=== PATIENT | female | born 1970 ===

== ENCOUNTER 2017-07-30 07:31 | Observation (INO) | payer BC ==
[2017-07-29 14:54] LABS: CHLORIDE,CL 107 mmol/L (98-110); SODIUM,NA 139 mmol/L (136-146)
[~2017-07-30 07:31] MED LIST: Lactated Ringers 1,000 ML IV SCH; Sodium Chloride 0.9% 10 ML Syringe FLUSH PRN; Sodium Chloride 0.9% 2.5 ML Syringe FLUSH PRN; ceFAZolin 2 GM in Premix Bag 1 BAG IV ONE
[2017-07-30] MEDS ORDERED: Fluorescein 5 ML Vial ONE (08:12)
[2017-07-30] MEDS ORDERED: Octyl 2-Cyanoacrylate 1 Tube ONE (08:12)
[2017-07-30] MEDS ORDERED: Rocuronium 10 MG/ML 10 ML Syringe ONE (08:14)
[2017-07-30] MEDS ORDERED: Ondansetron 4 MG/2 ML SDV ONE (08:14)
[2017-07-30] MEDS ORDERED: Lidocaine 2% 5 ML SDV ONE (08:14)
[2017-07-30] MEDS ORDERED: Propofol 200 MG/20 ML SDV ONE (08:15)
[2017-07-30] MEDS ORDERED: Midazolam 1 MG/ML 2 ML SDV ONE ×2 (08:15→09:45)
[2017-07-30] MEDS ORDERED: HYDROmorphone 2 MG/ML Syringe ONE ×2 (08:15→10:25)
[2017-07-30] MEDS ORDERED: fentaNYL 100 MCG/2 ML SDV ONE (08:15)
--- NOTE | 2017-07-30 08:38 | PCM.PREANE ---
Preanesthetic Assessment - Anesthesia/Transfusion/Family Hx Anesthesia History: Prior Anesthesia Without Reaction Family History of Anesthesia Reaction: No Transfusion History: No Prior Transfusion(s) Intubation History: Unknown - Review of Systems General: No Symptoms Pulmonary: No Symptoms Cardiovascular: No Symptoms Gastrointestinal: No Symptoms Neurological: No Symptoms Other: Reports: None - Physical Assessment O2 Sat by Pulse Oximetry: 98 Respiratory Rate: 16 Vital Signs: Last Vital Signs Temp 36.3 C 07/30/17 08:08 Pulse 86 07/30/17 08:08 Resp 16 07/30/17 08:08 BP 108/67 07/30/17 08:08 Pulse Ox 98 07/30/17 08:08 Height: 1.65 m Weight: 114.759 kg ASA Class: 2 Mental Status: Alert & Oriented x3 Airway Class: Mallampati = 2 Dentition: Reports: Normal Dentition Thyro-Mental Finger Breadths: 3 Mouth Opening Finger Breadths: 3 ROM/Head Extension: Full Lungs: Clear to Auscultation, Normal Respiratory Effort Cardiovascular: Regular Rate, Regular Rhythm - Lab Values: Laboratory Last Values WBC 7.25 K/uL (4.0-11.0) 07/29/17 14:22 RBC 3.82 M/uL (4.30-5.90) L 07/29/17 14:22 Hgb 9.9 g/dL (12.0-16.0) L 07/29/17 14:22 Hct 31.9 % (36.0-46.0) L 07/29/17 14:22 MCV 83.5 fL (80.0-98.0) 07/29/17 14:22 MCH 25.9 pg (27.0-32.0) L 07/29/17 14:22 MCHC 31.0 g/dL (31.0-37.0) 07/29/17 14:22 RDW Std Deviation 49.2 fl (28.0-62.0) 07/29/17 14:22 RDW Coeff of Shahrzad 16 % (11.0-15.0) H 07/29/17 14:22 Plt Count 369 K/uL (150-400) 07/29/17 14:22 MPV 10.20 fL (7.40-12.00) 07/29/17 14:22 Nucleated RBC % 0.0 /100WBC 07/29/17 14:22 Nucleated RBCs # 0 K/uL 07/29/17 14:22 Sodium 139 mmol/L (136-146) 07/29/17 14:22 Potassium 4.1 mmol/L (3.5-5.1) 07/29/17 14:22 Chloride 107 mmol/L (98-110) 07/29/17 14:22 Carbon Dioxide 24 mmol/L (21-31) 07/29/17 14:22 BUN 13 mg/dL (6.0-23.0) 07/29/17 14:22 Creatinine 0.8 mg/dL (0.6-1.5) 07/29/17 14:22 Est Cr Clr Drug Dosing 79.07 mL/min 07/29/17 14:22 Estimated GFR (MDRD) > 60.0 ml/min 07/29/17 14:22 Glucose 87 mg/dL (60-110) 07/29/17 14:22 Calcium 9.1 mg/dL (8.8-10.8) 07/29/17 14:22 HCG, Qual NEGATIVE (NEG) 07/29/17 14:22 Blood Type O POSITIVE 07/29/17 14:22 Antibody Screen NEGATIVE 07/29/17 14:22 - Allergies Allergies/Adverse Reactions: Allergies Allergy/AdvReac Type Severity Reaction Status Date / Time morphine Allergy mood change Verified 07/27/17 10:28 - Blood Blood Available: No - Anesthesia Plan Pre-Op Medication Ordered: None - Acknowledgements Anesthesia Type Planned: General Anesthesia Pt an Appropriate Candidate for the Planned Anesthesia: Yes Alternatives and Risks of Anesthesia Discussed w Pt/Guardian: Yes Pt/Guardian Understands and Agrees with Anesthesia Plan: Yes PreAnesthesia Questionnaire HEENT History: Reports: Other (See Below) Other HEENT History: wears glasses Cardiovascular History: Reports: Arrhythmia Other Cardiovascular History: 8 or 9 months ago went to ER for rapid heartrate Gastrointestinal History: Reports: Other (See Below) Other Gastrointestinal History: occasional heartburn 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 History: Reports: None 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: Musculoskeletal History: Reports: Back Pain, Chronic, Fracture Other Musculoskeletal History: treatment for left ankle fx Psychiatric History: Reports: Anxiety, Bipolar, Depression Endocrine/Metabolic History: Reports: Obesity/BMI 30+ - Past Surgical History Head Surgeries/Procedures: Reports: None GI Surgical History: Reports: Appendectomy, Cholecystectomy Female Surgical History: Reports: D&C, Tubal Ligation Musculoskeletal Surgical History: Reports: Arthroscopic Knee (left), Other (See Below) (left ankle surgery) - SUBSTANCE USE Smoking Status *Q: Current Every Day Smoker (< 1 ppd) Tobacco Use Within Last Twelve Months: Cigarettes Recreational Drug Use History: Yes Recreational Drug Type: Reports: Marijuana/Hashish - HOME MEDS Home Medications: Home Meds Citalopram [Celexa] 40 mg PO DAILY 05/08/16 [History] lamoTRIgine [Lamictal] 100 mg PO BEDTIME 05/08/16 [History] Ibuprofen 4 tab PO ASDIRECTED PRN 07/27/17 [History] - CURRENT (IN HOUSE) MEDS Current Meds: Current Medications Lactated Ringer's (Ringers, Lactated) 1,000 mls @ 125 mls/hr IV ASDIRECTED DELBERT Last Admin: 07/30/17 08:09 Dose: 125 mls/hr Sodium Chloride (Saline Flush) 10 ml FLUSH ASDIRECTED PRN PRN Reason: Keep Vein Open Sodium Chloride (Saline Flush) 2.5 ml FLUSH ASDIRECTED PRN PRN Reason: Keep Vein Open Discontinued Medications Fentanyl (Sublimaze) Confirm Administered Dose 100 mcg .ROUTE .STK-MED ONE Stop: 07/30/17 08:16 Fluorescein Sodium (Ak-Fluor) Confirm Administered Dose 5 ml .ROUTE .STK-MED ONE Stop: 07/30/17 08:13 Hydromorphone HCl (Dilaudid) Confirm Administered Dose 2 mg .ROUTE .STK-MED ONE Stop: 07/30/17 08:16 Cefazolin Sodium/Dextrose 2 gm (/ Premix) 50 mls @ 100 mls/hr IV ONETIME ONE Stop: 07/29/17 10:00 Lidocaine (Xylocaine-Mpf 2%) Confirm Administered Dose 5 ml .ROUTE .STK-MED ONE Stop: 07/30/17 08:15 Midazolam HCl (Versed 1 Mg/Ml) Confirm Administered Dose 2 mg .ROUTE .STK-MED ONE Stop: 07/30/17 08:16 Octyl Cyanoacrylate (Dermabond Advance) Confirm Administered Dose 1 applic .ROUTE .STK-MED ONE Stop: 07/30/17 08:13 Ondansetron HCl (Zofran) Confirm Administered Dose 4 mg .ROUTE .STK-MED ONE Stop: 07/30/17 08:15 Propofol (Diprivan 20 Ml) Confirm Administered Dose 200 mg .ROUTE .STK-MED ONE Stop: 07/30/17 08:16 Rocuronium [place] (Zemuron) Confirm Administered Dose 100 mg .ROUTE .STK-MED ONE Stop: 07/30/17 08:15
[2017-07-30] MEDS ORDERED: diphenhydrAMINE 50 MG/ML SDV ONE (09:31)
[2017-07-30] MEDS ORDERED: Dexamethasone 4 MG/ML 5 ML MDV ONE (09:31)
[2017-07-30] MEDS ORDERED: HYDROmorphone 2 MG/ML Syringe IVPUSH PRN ×2 (09:49→17:46)
[2017-07-30] MEDS ORDERED: Ketorolac 30 MG/ML SDV ONE (10:03)
[2017-07-30] MEDS ORDERED: Neostigmine Methylsulfate 1 MG/ML 5 ML Syringe ONE (10:34)
[2017-07-30] MEDS ORDERED: Promethazine 25 MG/ML SDV IM PRN (10:42)
[2017-07-30] MEDS ORDERED: Ketorolac 30 MG/ML SDV IVPUSH PRN (10:42)
[2017-07-30] MEDS ORDERED: Ondansetron 4 MG/2 ML SDV IVPUSH PRN (10:42)
[2017-07-30] MEDS ORDERED: Acetaminophen/oxyCODONE 325-5 MG Tab PO PRN (10:42)
[2017-07-30] MEDS ORDERED: Ketorolac 30 MG/ML SDV IVPUSH ONE (10:42)
--- NOTE | 2017-07-30 10:47 | PCM.OPNOTE ---
- General Post-Op/Procedure Note Date of Surgery/Procedure: 07/30/17 Operative Procedure(s): TVH,TVT and cysto Pre Op Diagnosis: menometrorragia, ARABELLA Post-Op Diagnosis: Same Anesthesia Technique: General ET Tube Primary Surgeon: Germain Pacheco EBL in mLs: 75 Complications: None Condition: Good
[2017-07-30] MEDS: fentaNYL 100 MCG/2 ML SDV IVPUSH PRN ×2 (11:07→11:18)
[2017-07-30] MEDS ORDERED: Promethazine 12.5 MG Supp RECTAL PRN (11:45)
--- NOTE | 2017-07-30 12:14 | PCM.POSTAN ---
POST ANESTHESIA ASSESSMENT - MENTAL STATUS Mental Status: Alert, Oriented - RESPIRATORY Respiratory Status: Respiratory Rate WNL, Airway Patent, O2 Saturation Stable - CARDIOVASCULAR CV Status: Pulse Rate WNL, Blood Pressure Stable - GASTROINTESTINAL GI Status: No Symptoms - POST OP HYDRATION Hydration Status: Adequate & Stable
--- NOTE | 2017-07-30 12:42 | OR ---
SURGEON: Germain Pacheco MD DATE OF PROCEDURE: PREOPERATIVE DIAGNOSIS: Menometrorrhagia, stress urinary incontinence. POSTOPERATIVE DIAGNOSIS: Menometrorrhagia, stress urinary incontinence. OPERATION PERFORMED: Total vaginal hysterectomy, tension-free Solyx TVT cystoscopy. PRESSROOM WORKER: Dr. Norma Eisenberg. ANESTHESIA: General endotracheal intubation, Marianne Caatlan and Dr. Muñiz. ESTIMATED BLOOD LOSS: Less than 100 mL. COMPLICATION: None. FINDINGS: Uterus about 8 weeks' size. Both ovaries essentially is normal. INDICATION: Refer to the admit note. PROCEDURE IN DETAIL: The patient was brought to the OR, properly identified, and after adequate level of general anesthesia, the patient was placed in lithotomy position. Prepped and draped in sterile fashion as usual. A short weighted speculum was placed in vagina. A single-tooth tenaculum was applied to the cervix and the cervix pulled forward and using electrocautery, circular incision in the vaginal mucosa around the cervix was done. The posterior cul-de-sac was entered posteriorly with the Lopez scissors and the perineum and the vagina tacked posteriorly with 2- 0 Vicryl and the short-weighted speculum replaced with an extending long weighted speculum from both sides. There was uterosacral ligament identified from both sides, clamped with a curved Zeppelin, transected, and suture ligated with 2-0 Vicryl pop-off in a Quang fashion, held for further identification. The same thing was done with the cardinal ligament. Then, the cervicovesical space entered anteriorly and the bladder retracted completely away from the operative field and the anterior cul-de-sac was entered anteriorly. The broad ligament clamped with a curved Zeppelin, transected, and suture ligated with 2-0 Vicryl pop-off. The uterine vessel was suture ligated. The round ligament was clamped with a curved Zeppelin, transected, and suture ligated with 2-0 Vicryl pop-off. The uterus was delivered posteriorly and the superior pedicle was clamped with 90 degree Zeppelin and the uterus was removed. The ovary was preserved, but both tubes were removed thus achieving bilateral salpingectomy. The superior pedicle tied 1st with a free tie twice on both sides. Inspection of the operative field showed no oozing, no bleeding and then the uterosacral ligament and cardinal ligament anchored to the vagina at 3 and 9 o'clock for added vaginal support and then the vaginal cuff was closed with 2-0 Vicryl interrupted [id number] sutures. Once we did that, then attention was paid to the anterior vaginal wall and the anterior vaginal wall beneath the urethra was infiltrated with copious amount with normal saline and incised in the middle using electrocautery and the vaginal mucosa dissected laterally creating a tunnel for the Solyx TVT. The Solyx TVT was placed in place and anchored to the back of the pubis rami from both sides and then the vaginal cuff was closed with 3-0 Vicryl continuous interlocking for hemostasis. While we were closing the vaginal cuff, we asked anesthesia to give the patient fluorescein and cystoscopy was performed. The bladder was intact. Both ureteric orifices were seen with the dye coming from both of them. Thus, the patency of both ureters were verified. Satisfied with these findings, the procedure ended. The instrument and sponge count were correct. The patient tolerated the procedure well and went to recovery room in general condition. ANI / SVETLANA /[id number]
[2017-07-30] MEDS ORDERED: Adenosine 6 MG/2 ML SDV IVPUSH ONE ×2 (12:47→13:15)
[2017-07-30] MEDS ORDERED: Morphine 2 MG/ML Syringe IVPUSH ONE (12:48)
[2017-07-30] MEDS ORDERED: Metoprolol Succinate 50 MG Tab.ER PO ONE (13:17)
[2017-07-30] MEDS ORDERED: Metoprolol Succinate 50 MG Tab.ER PO SCH (13:45)
[2017-07-30] MEDS: Metoprolol Succinate 50 MG Tab.ER PO SCH (14:18)
[2017-07-30] MEDS: Acetaminophen/oxyCODONE 325-5 MG Tab PO PRN ×3 (14:23→22:09)
--- NOTE | 2017-07-30 16:38 | PCM.CONS ---
H&P History of Present Illness - General Admit Problem/Dx: Admission Diagnosis/Problem Admission Diagnosis/Problem Menometrorrhagia - History of Present Illness Initial Comments - Free Text/Narative: 46 yo female who had an elective total vaginal hysterectomy today. When she arrived on the floor she developed palpations. She was noted to have SVT with heart rate in the 180s. She was placed on telemetry and given 6mg adenosine x1 with no response followed by 12mg of adenosine with conversion to normal sinus rhythm. Dr. Varela was consulted and recommended starting metoprolol 50mg. She no longer is complaining of palpitations. She denies any chest pain or shortness of breath. She had one other episode of SVT in November where she was given adenosine and converted to normal sinus rhythm. Lower Abdominal Pain Score (Numeric/FACES): 5 - Related Data Allergies/Adverse Reactions: Allergies Allergy/AdvReac Type Severity Reaction Status Date / Time morphine Allergy mood change Verified 07/27/17 10:28 Home Medications: Home Meds Citalopram [Celexa] 40 mg PO DAILY 05/08/16 [History] lamoTRIgine [Lamictal] 100 mg PO BEDTIME 05/08/16 [History] Ibuprofen 4 tab PO ASDIRECTED PRN 07/27/17 [History] Past Medical History HEENT History: Reports: Other (See Below) Other HEENT History: wears glasses Cardiovascular History: Reports: Arrhythmia Other Cardiovascular History: 8 or 9 months ago went to ER for rapid heartrate Gastrointestinal History: Reports: Other (See Below) Other Gastrointestinal History: occasional heartburn 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 History: Reports: 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: Musculoskeletal History: Reports: Back Pain, Chronic, Fracture Other Musculoskeletal History: treatment for left ankle fx Psychiatric History: Reports: Anxiety, Bipolar, Depression Endocrine/Metabolic History: Reports: Obesity/BMI 30+ - Past Surgical History Head Surgeries/Procedures: Reports: None GI Surgical History: Reports: Appendectomy, Cholecystectomy Female Surgical History: Reports: D&C, Tubal Ligation Musculoskeletal Surgical History: Reports: Arthroscopic Knee (left), Other (See Below) (left ankle surgery) Social & Family History - Family History Family Medical History: Noncontributory - Tobacco Use Smoking Status *Q: Current Every Day Smoker (< 1 ppd) Years of Tobacco use: 9 Packs/Tins Daily: 1 - Recreational Drug Use Recreational Drug Use: Yes Drug Use in Last 12 Months: Yes Recreational Drug Type: Reports: Marijuana/Hashish Other Recreational Drug Type: 07/26/17 Recreational Drug Use Frequency: Daily H&P Review of Systems - Review of Systems: Review Of Systems: ROS reveals no pertinent complaints other than HPI. Exam - Exam Exam: See Below - Vital Signs Vital Signs: Last Vital Signs Temp 36.6 C 07/30/17 12:04 Pulse 66 07/30/17 15:42 Resp 14 07/30/17 15:42 BP 112/59 L 07/30/17 15:42 Pulse Ox 96 07/30/17 15:42 Weight: 114.759 kg - Exam General: Alert, Oriented, 4 HEENT: Mucosa Moist & Oasis, Posterior Pharynx Clear Neck: Supple Lungs: Clear to Auscultation, Normal Respiratory Effort Cardiovascular: Regular Rate, Regular Rhythm GI/Abdominal Exam: Normal Bowel Sounds, Soft, Non-Tender, No Distention Extremities: Normal Inspection, Normal Range of Motion, No Pedal Edema Skin: Warm, Dry, Intact - Patient Data Lab Results Last 24 hrs: Laboratory Results - last 24 hr 07/29/17 Range/Units 14:22 Blood Type O POSITIVE Antibody Screen NEGATIVE Result Diagrams: 07/31/17 06:24 07/31/17 06:24 Consult PN Assessment/Plan Procedures: Procedures ASSAY OF CK (CPK) (05/08/16) ASSAY OF TROPONIN QUANT (05/08/16) ASSAY THYROID STIM HORMONE (06/30/17) CHEST X-RAY 1 VIEW FRONTAL (05/08/16) CHORIONIC GONADOTROPIN ASSAY (06/30/17) COMPLETE CBC W/AUTO DIFF WBC (06/30/17) COMPREHEN METABOLIC PANEL (05/08/16) CREATINE MB FRACTION (05/08/16) ELECTROCARDIOGRAM TRACING (05/08/16) EMERGENCY DEPT VISIT (05/08/16) HYDRATE IV INFUSION ADD-ON (05/08/16) INFLUENZA ASSAY W/OPTIC (01/12/15) LIPID PANEL (09/01/14) METABOLIC PANEL TOTAL CA (06/01/17) ROUTINE VENIPUNCTURE (06/30/17) THER/PROPH/DIAG INJ IV PUSH (05/08/16) TRANSVAGINAL US NON-OB (07/07/17) URINALYSIS AUTO W/SCOPE (06/01/17) URINE TEST (07/09/17) X-RAY EXAM OF ABDOMEN (06/01/17) Problem List Initiated/Reviewed/Updated: Yes My Orders Last 24 Hours: My Active Orders 07/30/17 13:15 Admission Status [Patient Status] [ADT] Routine Plan: 46 yo female who developed SVT following a TVH. She has converted to normal sinus with adenosine. We will continue metoprolol and monitor overnight on telemetry.
--- NOTE | 2017-07-30 18:10 | PCM48HPAN ---
Post Anesthesia Note - EVALUATION WITHIN 48HRS OF ANESTHETIC Vital Signs in Normal Range: Yes Patient Participated in Evaluation: Yes Respiratory Function Stable: Yes Airway Patent: Yes Cardiovascular Function Stable: Yes Hydration Status Stable: Yes Pain Control Satisfactory: Yes Nausea and Vomiting Control Satisfactory: Yes Mental Status Recovered: Yes - COMMENTS/OBSERVATIONS Free Text/Narrative:: Pt had one episode of SVT with successful conversion to SR with two doses of Adenosine. VSS since.
[2017-07-31] MEDS ORDERED: Sodium Chloride 0.9% 500 ML IV ONE (06:00)
[2017-07-31 07:14] LABS: CHLORIDE,CL 108 mmol/L (98-110); SODIUM,NA 140 mmol/L (136-146)
[2017-07-31] MEDS ORDERED: Acetaminophen 325 MG Tab PO PRN (08:04)
--- NOTE | 2017-07-31 09:00 | PCM.CONSN ---
- General Info Date of Service: 07/31/17 Admission Dx/Problem (Free Text): Admission Diagnosis/Problem Admission Diagnosis/Problem Menometrorrhagia Subjective Update: Patient doing well. No recurrence of chest pain. Denies sob, palpitations, weakness, numbness, tingling, vision changes. Overnight telemetry was Sinus Rhythm with intermittent bradycardia during sleep. - Review of Systems General: Reports: No Symptoms HEENT: Reports: No Symptoms Pulmonary: Reports: No Symptoms Cardiovascular: Reports: No Symptoms Gastrointestinal: Reports: No Symptoms 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: Reports: No Symptoms Musculoskeletal: Reports: No Symptoms Skin: Reports: No Symptoms Neurological: Reports: No Symptoms Psychiatric: Reports: No Symptoms - Patient Data Vitals - Most Recent: Last Vital Signs Temp 36.4 C 07/31/17 04:00 Pulse 59 L 07/30/17 18:00 Resp 16 07/31/17 07:00 BP 97/48 L 07/31/17 07:00 Pulse Ox 94 L 07/31/17 07:00 Weight - Most Recent: 117.7 kg I&O - Last 24 Hours: Intake & Output 07/30/17 07/31/17 07/31/17 22:59 06:59 14:59 Intake Total 1180 1100 500 Output Total 150 1300 Balance 1030 -200 500 Lab Results Last 24 Hours: Laboratory Results - last 24 hr 07/31/17 07/31/17 Range/Units 06:24 06:24 WBC 13.47 H (4.0-11.0) K/uL RBC 3.22 L (4.30-5.90) M/uL Hgb 8.4 L (12.0-16.0) g/dL Hct 27.1 L (36.0-46.0) % MCV 84.2 (80.0-98.0) fL MCH 26.1 L (27.0-32.0) pg MCHC 31.0 (31.0-37.0) g/dL RDW Std Deviation 49.9 (28.0-62.0) fl RDW Coeff of Shahrzad 16 H (11.0-15.0) % Plt Count 315 (150-400) K/uL MPV 10.30 (7.40-12.00) fL Neut % (Auto) 83.4 H (48.0-80.0) % Lymph % (Auto) 11.1 L (16.0-40.0) % Davie % (Auto) 5.0 (0.0-15.0) % Eos % (Auto) 0.4 (0.0-7.0) % Baso % (Auto) 0.1 (0.0-1.5) % Neut # (Auto) 11.2 H (1.4-5.7) K/uL Lymph # (Auto) 1.5 (0.6-2.4) K/uL Davie # (Auto) 0.7 (0.0-0.8) K/uL Eos # (Auto) 0.1 (0.0-0.7) K/uL Baso # (Auto) 0.0 (0.0-0.1) K/uL Nucleated RBC % 0.0 /100WBC Nucleated RBCs # 0 K/uL Sodium 140 (136-146) mmol/L Potassium 4.0 (3.5-5.1) mmol/L Chloride 108 (98-110) mmol/L Carbon Dioxide 25 (21-31) mmol/L BUN 10 (6.0-23.0) mg/dL Creatinine 0.7 (0.6-1.5) mg/dL Est Cr Clr Drug Dosing 90.22 mL/min Estimated GFR (MDRD) > 60.0 ml/min Glucose 115 H (60-110) mg/dL Calcium 8.4 L (8.8-10.8) mg/dL Med Orders - Current: Current Medications Acetaminophen (Tylenol) 650 mg PO Q6H PRN PRN Reason: Pain/Fever Last Admin: 07/31/17 08:31 Dose: 650 mg Hydromorphone HCl (Dilaudid) 0.5 mg IVPUSH Q2H PRN PRN Reason: Pain Last Admin: 07/30/17 18:28 Dose: 0.5 mg Ketorolac Tromethamine (Toradol) 30 mg IVPUSH Q6H PRN PRN Reason: Pain (severe 7-10) Stop: 08/04/17 10:42 Last Admin: 07/31/17 04:57 Dose: 30 mg Metoprolol Succinate (Toprol Xl) 50 mg PO DAILY DELBERT Last Admin: 07/30/17 14:18 Dose: 50 mg Ondansetron HCl (Zofran) 4 mg IVPUSH Q6H PRN PRN Reason: Nausea/Vomiting Oxycodone/Acetaminophen (Percocet 325-5 Mg) 1 tab PO Q4H PRN PRN Reason: Pain (moderate 4-6) Last Admin: 07/31/17 02:20 Dose: 1 tab Oxycodone/Acetaminophen (Percocet 325-5 Mg) 2 tab PO Q4H PRN PRN Reason: Pain (moderate 4-6) Last Admin: 07/30/17 22:09 Dose: 2 tab Promethazine HCl (Phenergan) 25 mg IM Q6H PRN PRN Reason: Nausea/Vomiting Promethazine HCl (Phenadoz) 12.5 mg RECTAL .PRN PRN PRN Reason: Nausea Last Admin: 07/30/17 11:52 Dose: 12.5 mg Sodium Chloride (Saline Flush) 10 ml FLUSH ASDIRECTED PRN PRN Reason: Keep Vein Open Sodium Chloride (Saline Flush) 2.5 ml FLUSH ASDIRECTED PRN PRN Reason: Keep Vein Open Discontinued Medications Adenosine (Adenocard) 6 mg IVPUSH NOW ONE Stop: 07/30/17 12:48 Last Admin: 07/30/17 12:56 Dose: 6 mg Adenosine (Adenocard) 12 mg IVPUSH NOW ONE Stop: 07/30/17 13:16 Last Admin: 07/30/17 13:06 Dose: 12 mg Dexamethasone (Dexamethasone) Confirm Administered Dose 20 mg .ROUTE .STK-MED ONE Stop: 07/30/17 09:32 Diphenhydramine HCl (Benadryl) Confirm Administered Dose 50 mg .ROUTE .STK-MED ONE Stop: 07/30/17 09:32 Fentanyl (Sublimaze) Confirm Administered Dose 100 mcg .ROUTE .STK-MED ONE Stop: 07/30/17 08:16 Fentanyl (Sublimaze) 50 mcg IVPUSH .Q5MIN PRN PRN Reason: Pain Last Admin: 07/30/17 11:18 Dose: 50 mcg Fluorescein Sodium (Ak-Fluor) Confirm Administered Dose 5 ml .ROUTE .STK-MED ONE Stop: 07/30/17 08:13 Glycopyrrolate () Confirm Administered Dose 1 mg .ROUTE .STK-MED ONE Stop: 07/30/17 10:35 Hydromorphone HCl (Dilaudid) Confirm Administered Dose 2 mg .ROUTE .STK-MED ONE Stop: 07/30/17 08:16 Hydromorphone HCl (Dilaudid) 0.5 mg IVPUSH .Q10MIN PRN PRN Reason: Pain Last Admin: 07/30/17 11:29 Dose: 0.5 mg Hydromorphone HCl (Dilaudid) Confirm Administered Dose 2 mg .ROUTE .STK-MED ONE Stop: 07/30/17 10:26 Cefazolin Sodium/Dextrose 2 gm (/ Premix) 50 mls @ 100 mls/hr IV ONETIME ONE Stop: 07/29/17 10:00 Last Admin: 07/30/17 20:17 Dose: Not Given Lactated Ringer's (Ringers, Lactated) 1,000 mls @ 125 mls/hr IV ASDIRECTED DELBERT Last Admin: 07/30/17 08:09 Dose: 125 mls/hr Sodium Chloride (Normal Saline) 500 mls @ 500 mls/hr IV .BOLUS ONE Stop: 07/31/17 06:59 Last Admin: 07/31/17 06:07 Dose: 500 mls/hr Ketorolac Tromethamine (Toradol) Confirm Administered Dose 30 mg .ROUTE .STK- MED ONE Stop: 07/30/17 10:04 Ketorolac Tromethamine (Toradol) 30 mg IVPUSH ONETIME ONE Stop: 07/30/17 10:43 Last Admin: 07/30/17 20:17 Dose: Not Given Lidocaine (Xylocaine-Mpf 2%) Confirm Administered Dose 5 ml .ROUTE .STK-MED ONE Stop: 07/30/17 08:15 Metoprolol Succinate (Toprol Xl) 50 mg PO ONETIME ONE Stop: 07/30/17 13:18 Last Admin: 07/30/17 20:51 Dose: Not Given Metoprolol Succinate (Toprol Xl) 50 mg PO DAILY [facility] Midazolam HCl (Versed 1 Mg/Ml) Confirm Administered Dose 2 mg .ROUTE .STK-MED ONE Stop: 07/30/17 08:16 Midazolam HCl (Versed 1 Mg/Ml) Confirm Administered Dose 2 mg .ROUTE .STK-MED ONE Stop: 07/30/17 09:46 Morphine Sulfate (Morphine) 2 mg IVPUSH ONETIME ONE Stop: 07/30/17 12:49 Last Admin: 07/30/17 12:54 Dose: 2 mg Neostigmine Methylsulfate (Neostigmine) Confirm Administered Dose 5 mg .ROUTE .STK-MED ONE Stop: 07/30/17 10:35 Octyl Cyanoacrylate (Dermabond Advance) Confirm Administered Dose 1 applic .ROUTE .STK-MED ONE Stop: 07/30/17 08:13 Ondansetron HCl (Zofran) Confirm Administered Dose 4 mg .ROUTE .STK-MED ONE Stop: 07/30/17 08:15 Propofol (Diprivan 20 Ml) Confirm Administered Dose 200 mg .ROUTE .STK-MED ONE Stop: 07/30/17 08:16 Rocuronium [place] (Zemuron) Confirm Administered Dose 100 mg .ROUTE .STK-MED ONE Stop: 07/30/17 08:15 - Exam General: Alert, Oriented, Cooperative, No Acute Distress HEENT: Pupils Equal, Pupils Reactive Neck: Supple, Trachea Midline, No JVD Lungs: Clear to Auscultation, Normal Respiratory Effort Cardiovascular: Regular Rate, Regular Rhythm, Bradycardia Extremities: Normal Inspection, No Pedal Edema, Normal Capillary Refill Peripheral Pulses: 2+: Carotid (L), Carotid (R), Radial (L), Radial (R), Dorsalis Pedis (L), Dorsalis Pedis (R) Neurological: No New Focal Deficit Consult PN Assessment/Plan Procedures: Procedures ASSAY OF CK (CPK) (05/08/16) ASSAY OF TROPONIN QUANT (05/08/16) ASSAY THYROID STIM HORMONE (06/30/17) CHEST X-RAY 1 VIEW FRONTAL (05/08/16) CHORIONIC GONADOTROPIN ASSAY (06/30/17) COMPLETE CBC W/AUTO DIFF WBC (06/30/17) COMPREHEN METABOLIC PANEL (05/08/16) CREATINE MB FRACTION (05/08/16) ELECTROCARDIOGRAM TRACING (05/08/16) EMERGENCY DEPT VISIT (05/08/16) HYDRATE IV INFUSION ADD-ON (05/08/16) INFLUENZA ASSAY W/OPTIC (01/12/15) LIPID PANEL (09/01/14) METABOLIC PANEL TOTAL CA (06/01/17) ROUTINE VENIPUNCTURE (06/30/17) THER/PROPH/DIAG INJ IV PUSH (05/08/16) TRANSVAGINAL US NON-OB (07/07/17) URINALYSIS AUTO W/SCOPE (06/01/17) URINE TEST (07/09/17) X-RAY EXAM OF ABDOMEN (06/01/17) Problem List Initiated/Reviewed/Updated: Yes My Orders Last 24 Hours: My Active Orders 07/30/17 13:18 Echo Comp wo Cont [US] Routine 07/31/17 08:04 Acetaminophen [Tylenol] 650 mg PO Q6H PRN Plan: Patient admitted for vaginal hysterectomy. She developed post-op SVT with palpitations for which medicine was consulted. She was given Adenosine 6 mg followed by 12 mg which resulted in successful of SVT. She was monitored overnight on telemetry and was Sinus Rhythm with intermittent bradycardia. She did develop hypotension overnight for which she was given 500 ml bolus of NS. Patient denies any recurrence of chest pain or palpitations. Prior to initially receiving the Adenosine, case was discussed Dr. Whyte who recommended starting Tropolol 50 mg PO Daily and monitoring. Due to hypotension and bradycardia it was not given. She will not be discharged home on the Metoprolol. She will have f/u visit arranged with Dr. Whyte. She was informed to return to ED or seek medical care if palpitations or chest pain recurs. She is cleared for discharge from medicine point of view.
[2017-07-31] MEDS: Metoprolol Succinate 50 MG Tab.ER PO SCH (09:06)
[2017-07-31 09:07] VITALS: BP 100/61
--- NOTE | 2017-07-31 09:07 | PCM.SURGPN ---
- General Info Date of Service: 07/31/17 POD#: 1 Functional Status: Reports: Pain Controlled - Review of Systems General: Reports: No Symptoms HEENT: Reports: No Symptoms Pulmonary: Reports: No Symptoms Cardiovascular: Reports: No Symptoms Gastrointestinal: Reports: No Symptoms 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: Reports: No Symptoms Musculoskeletal: Reports: No Symptoms Skin: Reports: No Symptoms Neurological: Reports: No Symptoms Psychiatric: Reports: No Symptoms - Patient Data Vitals - Most Recent: Last Vital Signs Temp 36.4 C 07/31/17 04:00 Pulse 59 L 07/30/17 18:00 Resp 16 07/31/17 07:00 BP 97/48 L 07/31/17 07:00 Pulse Ox 94 L 07/31/17 07:00 Weight - Most Recent: 117.7 kg I&O - Last 24 Hours: Intake & Output 07/30/17 07/31/17 07/31/17 22:59 06:59 14:59 Intake Total 1180 1100 500 Output Total 150 1300 Balance 1030 -200 500 Lab Results Last 24 Hrs: Laboratory Results - last 24 hr 07/31/17 07/31/17 Range/Units 06:24 06:24 WBC 13.47 H (4.0-11.0) K/uL RBC 3.22 L (4.30-5.90) M/uL Hgb 8.4 L (12.0-16.0) g/dL Hct 27.1 L (36.0-46.0) % MCV 84.2 (80.0-98.0) fL MCH 26.1 L (27.0-32.0) pg MCHC 31.0 (31.0-37.0) g/dL RDW Std Deviation 49.9 (28.0-62.0) fl RDW Coeff of Shahrzad 16 H (11.0-15.0) % Plt Count 315 (150-400) K/uL MPV 10.30 (7.40-12.00) fL Neut % (Auto) 83.4 H (48.0-80.0) % Lymph % (Auto) 11.1 L (16.0-40.0) % [place] % (Auto) 5.0 (0.0-15.0) % Eos % (Auto) 0.4 (0.0-7.0) % Baso % (Auto) 0.1 (0.0-1.5) % Neut # (Auto) 11.2 H (1.4-5.7) K/uL Lymph # (Auto) 1.5 (0.6-2.4) K/uL [place] # (Auto) 0.7 (0.0-0.8) K/uL Eos # (Auto) 0.1 (0.0-0.7) K/uL Baso # (Auto) 0.0 (0.0-0.1) K/uL Nucleated RBC % 0.0 /100WBC Nucleated RBCs # 0 K/uL Sodium 140 (136-146) mmol/L Potassium 4.0 (3.5-5.1) mmol/L Chloride 108 (98-110) mmol/L Carbon Dioxide 25 (21-31) mmol/L BUN 10 (6.0-23.0) mg/dL Creatinine 0.7 (0.6-1.5) mg/dL Est Cr Clr Drug Dosing 90.22 mL/min Estimated GFR (MDRD) > 60.0 ml/min Glucose 115 H (60-110) mg/dL Calcium 8.4 L (8.8-10.8) mg/dL Med Orders - Current: Current Medications Acetaminophen (Tylenol) 650 mg PO Q6H PRN PRN Reason: Pain/Fever Last Admin: 07/31/17 08:31 Dose: 650 mg Hydromorphone HCl (Dilaudid) 0.5 mg IVPUSH Q2H PRN PRN Reason: Pain Last Admin: 07/30/17 18:28 Dose: 0.5 mg Ketorolac Tromethamine (Toradol) 30 mg IVPUSH Q6H PRN PRN Reason: Pain (severe 7-10) Stop: 08/04/17 10:42 Last Admin: 07/31/17 04:57 Dose: 30 mg Metoprolol Succinate (Toprol Xl) 50 mg PO DAILY [facility]BERT Last Admin: 07/30/17 14:18 Dose: 50 mg Ondansetron HCl (Zofran) 4 mg IVPUSH Q6H PRN PRN Reason: Nausea/Vomiting Oxycodone/Acetaminophen (Percocet 325-5 Mg) 1 tab PO Q4H PRN PRN Reason: Pain (moderate 4-6) Last Admin: 07/31/17 02:20 Dose: 1 tab Oxycodone/Acetaminophen (Percocet 325-5 Mg) 2 tab PO Q4H PRN PRN Reason: Pain (moderate 4-6) Last Admin: 07/30/17 22:09 Dose: 2 tab Promethazine HCl (Phenergan) 25 mg IM Q6H PRN PRN Reason: Nausea/Vomiting Promethazine HCl (Phenadoz) 12.5 mg RECTAL .PRN PRN PRN Reason: Nausea Last Admin: 07/30/17 11:52 Dose: 12.5 mg Sodium Chloride (Saline Flush) 10 ml FLUSH ASDIRECTED PRN PRN Reason: Keep Vein Open Sodium Chloride (Saline Flush) 2.5 ml FLUSH ASDIRECTED PRN PRN Reason: Keep Vein Open Discontinued Medications Adenosine (Adenocard) 6 mg IVPUSH NOW ONE Stop: 07/30/17 12:48 Last Admin: 07/30/17 12:56 Dose: 6 mg Adenosine (Adenocard) 12 mg IVPUSH NOW ONE Stop: 07/30/17 13:16 Last Admin: 07/30/17 13:06 Dose: 12 mg Dexamethasone (Dexamethasone) Confirm Administered Dose 20 mg .ROUTE .STK-MED ONE Stop: 07/30/17 09:32 Diphenhydramine HCl (Benadryl) Confirm Administered Dose 50 mg .ROUTE .STK-MED ONE Stop: 07/30/17 09:32 Fentanyl (Sublimaze) Confirm Administered Dose 100 mcg .ROUTE .STK-MED ONE Stop: 07/30/17 08:16 Fentanyl (Sublimaze) 50 mcg IVPUSH .Q5MIN PRN PRN Reason: Pain Last Admin: 07/30/17 11:18 Dose: 50 mcg Fluorescein Sodium (Ak-Fluor) Confirm Administered Dose 5 ml .ROUTE .STK-MED ONE Stop: 07/30/17 08:13 Glycopyrrolate () Confirm Administered Dose 1 mg .ROUTE .STK-MED ONE Stop: 07/30/17 10:35 Hydromorphone HCl (Dilaudid) Confirm Administered Dose 2 mg .ROUTE .STK-MED ONE Stop: 07/30/17 08:16 Hydromorphone HCl (Dilaudid) 0.5 mg IVPUSH .Q10MIN PRN PRN Reason: Pain Last Admin: 07/30/17 11:29 Dose: 0.5 mg Hydromorphone HCl (Dilaudid) Confirm Administered Dose 2 mg .ROUTE .STK-MED ONE Stop: 07/30/17 10:26 Cefazolin Sodium/Dextrose 2 gm (/ Premix) 50 mls @ 100 mls/hr IV ONETIME ONE Stop: 07/29/17 10:00 Last Admin: 07/30/17 20:17 Dose: Not Given Lactated Ringer's (Ringers, Lactated) 1,000 mls @ 125 mls/hr IV ASDIRECTED DELBERT Last Admin: 07/30/17 08:09 Dose: 125 mls/hr Sodium Chloride (Normal Saline) 500 mls @ 500 mls/hr IV .BOLUS ONE Stop: 07/31/17 06:59 Last Admin: 07/31/17 06:07 Dose: 500 mls/hr Ketorolac Tromethamine (Toradol) Confirm Administered Dose 30 mg .ROUTE .STK- MED ONE Stop: 07/30/17 10:04 Ketorolac Tromethamine (Toradol) 30 mg IVPUSH ONETIME ONE Stop: 07/30/17 10:43 Last Admin: 07/30/17 20:17 Dose: Not Given Lidocaine (Xylocaine-Mpf 2%) Confirm Administered Dose 5 ml .ROUTE .STK-MED ONE Stop: 07/30/17 08:15 Metoprolol Succinate (Toprol Xl) 50 mg PO ONETIME ONE Stop: 07/30/17 13:18 Last Admin: 07/30/17 20:51 Dose: Not Given Metoprolol Succinate (Toprol Xl) 50 mg PO DAILY [facility] Midazolam HCl (Versed 1 Mg/Ml) Confirm Administered Dose 2 mg .ROUTE .STK-MED ONE Stop: 07/30/17 08:16 Midazolam HCl (Versed 1 Mg/Ml) Confirm Administered Dose 2 mg .ROUTE .STK-MED ONE Stop: 07/30/17 09:46 Morphine Sulfate (Morphine) 2 mg IVPUSH ONETIME ONE Stop: 07/30/17 12:49 Last Admin: 07/30/17 12:54 Dose: 2 mg Neostigmine Methylsulfate (Neostigmine) Confirm Administered Dose 5 mg .ROUTE .STK-MED ONE Stop: 07/30/17 10:35 Octyl Cyanoacrylate (Dermabond Advance) Confirm Administered Dose 1 applic .ROUTE .STK-MED ONE Stop: 07/30/17 08:13 Ondansetron HCl (Zofran) Confirm Administered Dose 4 mg .ROUTE .STK-MED ONE Stop: 07/30/17 08:15 Propofol (Diprivan 20 Ml) Confirm Administered Dose 200 mg .ROUTE .STK-MED ONE Stop: 07/30/17 08:16 Rocuronium [place] (Zemuron) Confirm Administered Dose 100 mg .ROUTE .STK-MED ONE Stop: 07/30/17 08:15 - Exam Wound/Incisions: Healing Well General: Alert, Oriented HEENT: Pupils Equal Neck: Supple Lungs: Clear to Auscultation, Normal Respiratory Effort Cardiovascular: Regular Rate, Regular Rhythm GI/Abdominal Exam: Normal Bowel Sounds, Soft, Non-Tender, No Organomegaly, No Distention, No Abnormal Bruit, No Mass, Pelvis Stable Extremities: Normal Inspection, Normal Range of Motion, Non-Tender, No Pedal Edema, Normal Capillary Refill Skin: Warm, Dry, Intact Neurological: No New Focal Deficit Psy/Mental Status: Alert, Normal Affect, Normal Mood - Problem List Review Problem List Initiated/Reviewed/Updated: Yes - My Orders Last 24 Hours: Active Orders 24 hr Category Date Time Status Admission Status [Patient Status] [ADT] Routine ADT 07/30/17 13:45 Active Patient Status [ADT] Routine ADT 07/30/17 10:42 Active Communication Order [RC] ROUTINE Care 07/30/17 20:07 Active EKG 12 Lead [EKG Documentation Completion] [RC] Care 07/31/17 06:01 Active ASDIRECTED Notify Provider Consults [RC] ASDIRECTED Care 07/30/17 12:34 Active Notify Provider Consults [RC] ASDIRECTED Care 07/30/17 17:45 Active Notify Provider Vital Signs [RC] ASDIRECTED Care 07/30/17 10:42 Active Oxygen Therapy [RC] ASDIRECTED Care 07/30/17 10:42 Active RT Incentive Spirometry [RC] Q2HWA Care 07/30/17 10:42 Active Up With Assistance [RC] PER UNIT ROUTINE Care 07/30/17 10:42 Active Up ad Oralia [RC] PER UNIT ROUTINE Care 07/30/17 10:42 Active Vital Signs [RC] Q1H Care 07/30/17 10:42 Active Consult to Physician [CONS] Stat Cons 07/30/17 12:33 Active Consult to Physician [CONS] Stat Cons 07/30/17 17:44 Active Regular Diet [DIET] Diet 07/30/17 Lunch Active Echo Comp wo Cont [US] Routine Exams 07/30/17 13:18 Taken Acetaminophen [Tylenol] Med 07/31/17 08:04 Active 650 mg PO Q6H PRN Acetaminophen/oxyCODONE [Percocet 325-5 MG] Med 07/30/17 10:42 Active 1 tab PO Q4H PRN Acetaminophen/oxyCODONE [Percocet 325-5 MG] Med 07/30/17 10:42 Active 2 tab PO Q4H PRN HYDROmorphone [Dilaudid] Med 07/30/17 17:46 Active 0.5 mg IVPUSH Q2H PRN Ketorolac [Toradol] Med 07/30/17 10:42 Active 30 mg IVPUSH Q6H PRN Metoprolol Succinate [Toprol XL] Med 07/30/17 13:45 Active 50 mg PO DAILY Ondansetron [Zofran] Med 07/30/17 10:42 Active 4 mg IVPUSH Q6H PRN Promethazine [Phenadoz] Med 07/30/17 11:45 Active 12.5 mg RECTAL .PRN PRN Promethazine [Phenergan] Med 07/30/17 10:42 Active 25 mg IM Q6H PRN Peripheral IV Discontinue [OM.PC] Routine Oth 07/30/17 10:42 Ordered Sequential Compression Device [OM.PC] Per Unit Routine Oth 07/30/17 10:42 Ordered Resuscitation Status Routine Resus Stat 07/30/17 10:42 Ordered Medication Orders Acetaminophen (Tylenol) 650 mg PO Q6H PRN PRN Reason: Pain/Fever Last Admin: 07/31/17 08:31 Dose: 650 mg Hydromorphone HCl (Dilaudid) 0.5 mg IVPUSH Q2H PRN PRN Reason: Pain Last Admin: 07/30/17 18:28 Dose: 0.5 mg Ketorolac Tromethamine (Toradol) 30 mg IVPUSH Q6H PRN PRN Reason: Pain (severe 7-10) Stop: 08/04/17 10:42 Last Admin: 07/31/17 04:57 Dose: 30 mg Metoprolol Succinate (Toprol Xl) 50 mg PO DAILY DELBERT Last Admin: 07/30/17 14:18 Dose: 50 mg Ondansetron HCl (Zofran) 4 mg IVPUSH Q6H PRN PRN Reason: Nausea/Vomiting Oxycodone/Acetaminophen (Percocet 325-5 Mg) 1 tab PO Q4H PRN PRN Reason: Pain (moderate 4-6) Last Admin: 07/31/17 02:20 Dose: 1 tab Oxycodone/Acetaminophen (Percocet 325-5 Mg) 2 tab PO Q4H PRN PRN Reason: Pain (moderate 4-6) Last Admin: 07/30/17 22:09 Dose: 2 tab Admin: 07/30/17 18:15 Dose: 2 tab Admin: 07/30/17 14:23 Dose: 2 tab Promethazine HCl (Phenergan) 25 mg IM Q6H PRN PRN Reason: Nausea/Vomiting Promethazine HCl (Phenadoz) 12.5 mg RECTAL .PRN PRN PRN Reason: Nausea Last Admin: 07/30/17 11:52 Dose: 12.5 mg Sodium Chloride (Saline Flush) 10 ml FLUSH ASDIRECTED PRN PRN Reason: Keep Vein Open Sodium Chloride (Saline Flush) 2.5 ml FLUSH ASDIRECTED PRN PRN Reason: Keep Vein Open - Assessment Assessment (Free Text/Narrative):: S/P TVH and TVT doing well - Plan Plan (Free Text/Narrative):: Send home today
--- NOTE | 2017-08-03 09:50 | CONS ---
DATE OF CONSULTATION: DATE OF : 1970 PRIMARY CARE PHYSICIAN: Mary Mcdonald [facility] REASON FOR CONSULTATION: SVT. HISTORY OF PRESENT ILLNESS: This is a 46-year-old female, history of morbid obesity, with history of irregular menstrual bleeding, admitted to the hospital for vaginal hysterectomy, which she has already gone and completed on 30 of July. I was asked to see her because of postop day 1, she developed fast heart rate with a heart rate of 182 and narrow QRS complex tachycardia. She was given adenosine 6 and followed by 12 mg, and then she converted to sinus rhythm. She had it once before and this seems to be a 2nd time and never seen a billing and quality technician. She denies history of diabetes, hypertension, or dyslipidemia. PAST MEDICAL HISTORY: Including dysmenorrhea and irregular menstrual bleeding status post vaginal hysterectomy. ALLERGIES: She is allergic to morphine. SOCIAL HISTORY: She is a smoker. She denies drinking or drug use. REVIEW OF SYSTEMS: Positive for palpitation and heart racing, tired. Review of systems has been negative. PHYSICAL EXAMINATION: VITAL SIGNS: Blood pressure 100/61, heart rate of 58, temperature 36.4, O2 saturation 96% on room air. HEENT: No pallor. No jaundice. NECK: No JVD. HEART: Normal S1, S2. No murmur. LUNGS: Clear. ABDOMEN: Soft and nontender. Bowel sounds present. No hepatosplenomegaly. EXTREMITIES: Legs, no edema. LABORATORY INVESTIGATION: CBC showed WBC of 30, hematocrit of 27, platelet of 315. Sodium 140, potassium 4, chloride 108, bicarb 25, BUN 10, creatinine 0.7. EKG showed narrow complex tachycardia, seemed to be SVT, heart rate of 182. ASSESSMENT AND PLAN: A 46-year-old female status post vaginal hysterectomy, postop day 1 developed supraventricular tachycardia in the hospital, converted to sinus rhythm with adenosine 6 mg followed by 12 mg. I would recommend to start on a beta-mainor and observe her overnight if her blood pressure tolerated and also recommended to have an echocardiogram checked, but this can be done as an outpatient as well. We will see how often she develops the supraventricular tachycardia. If she develops more often, I would recommend to have the ablation procedure for her. However, if it is not very often sporadic, she could get by, by the vagal maneuver or just the daily medication. DEEPPEE / SVETLANA /[id number]
--- NOTE | 2017-08-04 17:14 | ECHO ---
EXAM DATE: 07/30/17 PATIENT'S AGE: 46 The echocardiogram report can be seen in this patient's EMR (Electronic Medical Record) in the Reports section. The report has also been scanned into PACs. CAT
== END 2017-07-31 09:40 | disposition home or self-care (01) ==
LOC: MW.SDS 07:31 → MW.MS 10:42 → MW.ICU 13:15 → MW.SDS 13:33
PROVIDERS: ADMIT Obstetrics & Gynecology; ATTEND Obstetrics & Gynecology
DX: N84.0 Polyp of corpus uteri (principal); N80.0 Endometriosis of uterus; D25.1 Intramural leiomyoma of uterus; N87.9 Dysplasia of cervix uteri, unspecified; N39.3 Stress incontinence (female) (male); F41.9 Anxiety disorder, unspecified; F31.9 Bipolar disorder, unspecified; F17.210 Nicotine dependence, cigarettes, uncomplicated; Z79.899 Other long term (current) drug therapy; Z98.51 Tubal ligation status; Z90.49 Acquired absence of other specified parts of digestive tract; Z98.890 Other specified postprocedural states; Z88.5 Allergy status to narcotic agent
CPT/HCPCS: 36415; 57288; 58260; 80048; 84703; 85025; 85027; 86850; 86900; 86901; 88307; 93005; 93306; 96374; A9270; C1781; G0378; J0153; J1100; J1170; J1200; J1885; J2250; J2270; J2405; J3010; J7040; J7120; 00940; J2704

== ENCOUNTER 2023-04-19 23:21 | Emergency (ER) | payer BC ==
[2023-04-19] MEDS ORDERED: Aspirin 81 MG Tab.Chew PO ONE (23:36)
[2023-04-20] MEDS ORDERED: Aluminum Hydroxide/Magnesium Hydroxide/Simethicone XS Susp 30 ML Cup PO ONE
[2023-04-20] MEDS ORDERED: Famotidine 20 MG Tab PO ONE
[2023-04-20] MEDS ORDERED: Pantoprazole 40 MG Tab.CR PO STA
[2023-04-20 00:12] LABS: BASOPHILS PERCENT AUTO 0.4 % (0.0-1.5); EOSINOPHILS ABSOLUTE AUTO 0.4 K/uL (0.0-0.7); EOSINOPHILS PERCENT AUTO 5.8 % (0.0-7.0); MEAN CORPUSCULAR HEMOGLOBIN 30.2 pg (27.0-32.0); MEAN CORPUSCULAR HGB CONC 32.5 g/dL (31.0-37.0); MONOCYTES ABSOLUTE AUTO 0.5 K/uL (0.0-0.8); MONOCYTES PERCENT AUTO 7.1 % (0.0-15.0); NEUTROPHILS PERCENT AUTO 57.7 % (48.0-80.0); NRBC ABSOLUTE 0 K/uL; PLATELET COUNT,PLT 303 K/uL (150-400); WHITE BLOOD CELL COUNT,WBC 6.93 K/uL (4.0-11.0)
[2023-04-20 00:41] LABS: A/G RATIO 0.9 (0.9-1.6); ALBUMIN 3.5 g/dL (3.4-5.0); BILIRUBIN TOTAL 0.3 mg/dL (0.2-1.0); CALCIUM 9.6 mg/dL (8.5-10.1); CARBON DIOXIDE,CO2 30.2 mmol/L (21.0-32.0); EST CRCL DRUG DOSING (CG) 59.22 mL/min; POTASSIUM,K 3.8 mmol/L (3.5-5.1); PROTEIN TOTAL,TP 7.3 g/dL (6.4-8.2)
[2023-04-20 01:36] VITALS: BP 133/75; PULSE 60
== END 2023-04-20 01:36 | disposition left against medical advice (07) ==
LOC: MW.ED 23:21
DX: R07.89 Other chest pain (principal); E66.9 Obesity, unspecified; Z88.5 Allergy status to narcotic agent; Z68.38 Body mass index [BMI] 38.0-38.9, adult
CPT/HCPCS: 36415; 71045; 80053; 83690; 84484; 85025; 93005; 99285; A9270

== ENCOUNTER 2024-07-02 11:17 | Emergency (ER) | payer BC ==
[2024-07-02 11:56] VITALS: BP 134/82; PULSE 77
== END 2024-07-02 11:56 | disposition left against medical advice (07) ==
LOC: MW.ED 11:17
DX: Z53.21 Procedure and treatment not carried out due to patient leaving prior to being seen by health care provider (principal)